=== PATIENT | female | born 1995 | race Caucasian/White ===

== ENCOUNTER → 2016-11-15 | Outpatient (CLI) | payer OTHER ==
--- NOTE | 2016-11-15 13:28 | DIAGNOSTIC IMAGING REPORT ---
RIGHT WRIST MIN 3 VIEWS ROUTINE CLINICAL HISTORY: RIGHT FOREARM WRIST PAIN Right trauma COMPARISON: None. DISCUSSION: The bones and joint spaces appear intact. There is no evidence of fracture, dislocation or bony disease. There is no evidence for soft tissue swelling. IMPRESSION: Negative study. Electronically signed by: Derek Friedman M.D. 11/15/2016 1:26 PM Dictated Date/Time: 11/15/2016 1:25 PM
--- NOTE | 2016-11-15 13:29 | DIAGNOSTIC IMAGING REPORT ---
RIGHT FOREARM 2 VIEWS CLINICAL HISTORY: RIGHT FOREARM WRIST PAIN Right trauma. Pain. COMPARISON: None. DISCUSSION: The bones and joint spaces appear intact. There is no evidence of fracture, dislocation or bony disease. There is no evidence for soft tissue swelling. IMPRESSION: Negative study. Electronically signed by: Derek Friedman M.D. 11/15/2016 1:27 PM Dictated Date/Time: 11/15/2016 1:26 PM
== END | disposition home or self-care (01) ==
LOC: C.RDSM 08:35
PROVIDERS: ATTEND Family Medicine
DX: M25.531 Pain in right wrist (principal); M79.631 Pain in right forearm

== ENCOUNTER → 2017-04-09 | Outpatient (CLI) | payer OTHER ==
--- NOTE | 2017-04-12 14:42 | DIAGNOSTIC IMAGING REPORT ---
LEFT ANKLE MIN 3 VIEWS CLINICAL HISTORY: Left ankle pain. COMPARISON: None FINDINGS: Alignment of the left ankle is anatomic. No fracture or osseous lesion is identified. Talar dome is intact. IMPRESSION: Unremarkable left ankle radiographs. Electronically signed by: Roberto Montiel M.D. 04/12/2017 2:41 PM Dictated Date/Time: 04/12/2017 2:40 PM
== END | disposition home or self-care (01) ==
LOC: C.RDSM 13:18
PROVIDERS: ATTEND Family Medicine
DX: M25.572 Pain in left ankle and joints of left foot (principal)

== ENCOUNTER → 2017-05-17 | Outpatient (CLI) | payer OTHER ==
--- NOTE | 2017-05-17 09:58 | DIAGNOSTIC IMAGING REPORT ---
L ANKLE MIN 3 VIEWS HISTORY: 22 years-old Female LEFT ANKLE PAIN acute left-sided ankle pain. COMPARISON: Left ankle radiographs 04/12/2017 TECHNIQUE: 4 views of the left ankle FINDINGS: Pes planus deformity noted on this nonweightbearing study. No acute fracture, dislocation or significant degenerative changes. Soft tissues are unremarkable. IMPRESSION: 1. No acute fracture or dislocation. 2. Mild pes planus deformity. The above report was generated using voice recognition software. It may contain grammatical, syntax or spelling errors. Electronically signed by: Henrik Salazar M.D. 05/17/2017 9:56 AM Dictated Date/Time: 05/17/2017 9:55 AM
== END | disposition home or self-care (01) ==
LOC: C.RDSM 14:44
PROVIDERS: ATTEND Family Medicine
DX: M25.572 Pain in left ankle and joints of left foot (principal)